=== PATIENT | male | born 1960 | race Caucasian/White ===

== ENCOUNTER 2024-10-18 08:35 | Outpatient (AMB) | payer OTHER, SELFPAY ==
[2024-10-18 08:38] VITALS: BP 118/74; PULSE 60; O2SAT 97; BMI 29.8
--- NOTE | 2024-10-18 08:38 | MHC.OFFVIS ---
Vital Signs 10/18/24 08:38 Height 5 ft 10 in Weight 207 lb 14.334 oz BMI 29.8 BP 118/74 Blood Pressure Location Lt brachial Position Sitting Pulse 60 Pulse Source Pulse Oximeter Pulse Oximetry (%) 97 Oxygen Delivery Method Room Air Intake Visit Reasons: PMR/Cm Intake Note: Patient is here to follow up on PMR. He also states his hands and fingers are not getting better. Allergies No Known Allergies Allergy (Verified 10/18/24 08:43) HPI Comments Details: He has had jaw pain on a few occasions, self-limited. History of TMJ. Dentist recommends mouth guards. Denies new ocular symptoms, headache, pain and shoulder/neck/hips/thighs. Right thumb is triggering MS 1 hour. Meloxicam helped reduce hand pain but it is still present. [facility] Family History (Updated 10/18/24 @ 08:49 by Luz Edge [facility]) Father Arthritis Mother Pancreatic cancer S/P cholecystectomy Review of Systems Const All systems reviewed & are unremarkable except as noted in HPI and below Physical Exam Vital Signs: Last Vital Signs Pulse 60 10/18/24 08:38 BP 118/74 10/18/24 08:38 Pulse Ox 97 10/18/24 08:38 Oxygen Delivery Method Room Air 10/18/24 08:38 BMI result Body Mass Index 29.8 Const Other: General: Comfortable CVS: RRR Respiratory: clear to auscultation bilaterally. Good respiratory effort Skin: No lesions seen MSK: Chronic synovial thickening left 2nd MCP palpated. No joints are tender on exam. Good handgrip. Good range of motion of upper extremity lower extremity. Assessment & Plan Assessment & Plan (1) PMR (polymyalgia rheumatica): Comment: Diagnosed with PMR 05/05/2022 based on bilateral shoulder/hip/thigh pain in his to responding to NSAIDs progress to not being able to get up out of bed, elevated CRP 1.4 mg/dL with normal ESR. He responded to prednisone but while tapering prednisone he developed jaw claudication symptoms. Right Temporal artery biopsy was negative 09/2022. Prednisone 06/04/2022 to 06/04/2024. He then developed persistent right 2nd PIP swelling, chronic polyarthralgias and stiffness in PIP found to have positive rheumatoid factor greater than 120. It is possible that he has developed early seropositive rheumatoid arthritis initially presenting as PMR mimic. His symptoms are better managed on meloxicam but he has persistent morning stiffness and signs of inflammatory arthritis with chronic synovial thickening on exam of left 2nd MCP. We discussed starting DMARD therapy to control current symptoms and prevent progression of disease. Discussed side effects, benefits and drug monitoring. After adding methotrexate, we will consider discontinued meloxicam. [facility] reviewed. Code(s): M35.3 - Polymyalgia rheumatica Category: Medical Plan: Labs for disease monitoring and baseline prior to starting high-risk medication ordered After lab results are back, we will send prescription for methotrexate 12.5 mg once weekly and folic acid 1 mg daily. He will then need labs in a month to assess for drug toxicity Return to clinic in 3 months Continue meloxicam 15 mg daily (2) Hand swelling: Code(s): M79.89 - Other specified soft tissue disorders Category: Medical Plan: See above (3) Seropositive rheumatoid arthritis: Code(s): M05.9 - Rheumatoid arthritis with rheumatoid factor, unspecified Category: Medical Plan: See above (4) Trigger thumb, right thumb: Comment: Intermittent. Discussed conservative management. Code(s): M65.311 - Trigger thumb, right thumb Category: Medical Plan: OT referral We discussed using splint at night. I am recommending OT provide patient with splint to wear at night Return to clinic in 3 months Orders: Orders Aspartate Amino Transferase 10/18/24 M35.3 - Polymyalgia rheumatica, M79.89 - Other specified soft tissue disorders C Reactive Protein 10/18/24 M35.3 - Polymyalgia rheumatica, M79.89 - Other specified soft tissue disorders Complete Blood Count Auto Diff 10/18/24 M35.3 - Polymyalgia rheumatica, M79.89 - Other specified soft tissue disorders Creatinine 10/18/24 M35.3 - Polymyalgia rheumatica, M79.89 - Other specified soft tissue disorders Cyclic Citrullinated Peptide 10/18/24 M35.3 - Polymyalgia rheumatica, M79.89 - Other specified soft tissue disorders Rheumatoid Factor 10/18/24 M35.3 - Polymyalgia rheumatica, M79.89 - Other specified soft tissue disorders OT Evaluation and Treatment 10/18/24 M65.311 - Trigger thumb, right thumb Alanine Aminotransferase 10/18/24 M35.3 - Polymyalgia rheumatica, M79.89 - Other specified soft tissue disorders Erythrocyte Sedimentation Rate 10/18/24 M35.3 - Polymyalgia rheumatica, M79.89 - Other specified soft tissue disorders Hepatitis B,C Profile 10/18/24 M35.3 - Polymyalgia rheumatica, M79.89 - Other specified soft tissue disorders T Spot TB 10/18/24 M35.3 - Polymyalgia rheumatica, M79.89 - Other specified soft tissue disorders Coding Level of Care Code Est Pt Level 5 (03292) Complex EM visit Add On G2211 Diagnoses PMR (polymyalgia rheumatica) M35.3 Hand swelling M79.89 Seropositive rheumatoid arthritis M05.9 Trigger thumb, right thumb M65.311 Time Spent (min) 60 Comment Discussing treatment with patient and reviewing records from [facility]
== END 2024-10-18 09:36 | disposition home or self-care (01) ==
PROVIDERS: PCP Nurse Practitioner; Visit Provider Internal Medicine Rheumatology
DX: M35.3 Polymyalgia rheumatica (principal); M79.89 Other specified soft tissue disorders; M05.9 Rheumatoid arthritis with rheumatoid factor, unspecified; M65.311 Trigger thumb, right thumb
CPT/HCPCS: 99215; 99417

== ENCOUNTER 2024-10-18 11:57 | Outpatient (REF) | payer OTHER, SELFPAY ==
[2024-10-18 13:35] LABS: MANUAL DIFF FLAG NO
[2024-10-18 14:03] LABS: Basophils Percent Auto 0.3 % (0-2); Eosinophils Absolute Auto 0.1 X10*3/uL (0.0-0.4); Eosinophils Percent Auto 0.9 % (0-4); Hematocrit 41.2 % (42.0-52.0); Hemoglobin 13.8 g/dl (14.0-18.0); Imm Gran Abs Auto 0.02 X10*3/uL (0.00-0.03); Imm Gran Pct Auto 0.3 % (0.0-0.4); Lymphocytes Absolute Auto 2.2 X10*3/uL (1.2-4.9); Lymphocytes Percent Auto 32.5 % (20-40); Mean Corpuscular HGB Conc 33.5 g/dl (31.0-36.0); Mean Corpuscular Hemoglobin 31.4 pg (27.0-33.0); Mean Corpuscular Volume 93.8 fL (80.0-98.0); Mean Platelet Volume 11.5 fL (9.4-12.4); Monocytes Absolute Auto 0.5 X10*3/uL (0.1-1.2); Monocytes Percent Auto 6.7 % (2-11); Neutrophils Percent Auto 59.3 % (45-73); Platelet Count 184 X10*3/uL (160-400); Red Blood Count 4.39 X10*6/uL (4.60-5.80); Red Cell Distribution Width 12.9 % (11.0-16.0); White Blood Count 6.7 X10*3/uL (4.8-10.8)
[2024-10-18 14:41] LABS: Alanine Aminotransferase 18 U/L (0-40); Aspartate Amino Transferase 28 U/L (5-37); C Reactive Protein < 0.10 mg/dL (< or = 0.50); Estimated Glomerular Filt Rate > 60
[2024-10-18 14:50] LABS: Rheumatoid Factor 157.2 IU/mL (<15.0)
[2024-10-18 15:02] LABS: Erythrocyte Sedimentation Rate 7 MM/HR (0-15)
[2024-10-19 05:13] LABS: HBS Num1 0.17 mIU/mL (0-7.99); HBc Num1 0.07 S/CO (0.00-0.79); HBsAGNum1 0.42 S/CO (0.00-0.99); Hepatitis B Core Antibody Nonreactive (Nonreactive); Hepatitis B Surface Antigen Negative (Negative); ~HepC Num1 0.11 S/CO (0.00-0.79); ~Hepatitis B Surface Antibody NONREACTIVE (Nonreactive); ~Hepatitis C Antibody Nonreactive (Nonreactive)
[2024-10-20 08:33] LABS: Cyclic Citrullinated Peptide <16 UNITS
[2024-10-21 05:03] LABS: TS Negative Control Passed; TS Panel A 0; TS Panel B 0; TS Positive Control Passed; TSpotTB Negative (Negative)
== END 2024-10-18 11:58 | disposition home or self-care (01) ==
LOC: HO.10HDL 11:57
PROVIDERS: Visit Provider Internal Medicine Rheumatology
DX: M35.3 Polymyalgia rheumatica (principal); M79.89 Other specified soft tissue disorders
CPT/HCPCS: 36415; 82565; 84450; 84460; 85025; 85652; 86140; 86200; 86431; 86481; 86704; 86706; 86803; 87340

== ENCOUNTER 2024-10-28 11:56 | Outpatient (REF) | payer OTHER, SELFPAY ==
[2024-10-28 13:07] LABS: MANUAL DIFF FLAG NO
[2024-10-28 13:31] LABS: Basophils Percent Auto 0.6 % (0-2); Eosinophils Absolute Auto 0.1 X10*3/uL (0.0-0.4); Hematocrit 45.1 % (42.0-52.0); Imm Gran Abs Auto 0.02 X10*3/uL (0.00-0.03); Imm Gran Pct Auto 0.3 % (0.0-0.4); Lymphocytes Absolute Auto 2.2 X10*3/uL (1.2-4.9); Lymphocytes Percent Auto 32.1 % (20-40); Mean Corpuscular HGB Conc 33.3 g/dl (31.0-36.0); Mean Corpuscular Hemoglobin 31.4 pg (27.0-33.0); Mean Corpuscular Volume 94.5 fL (80.0-98.0); Mean Platelet Volume 10.7 fL (9.4-12.4); Monocytes Absolute Auto 0.5 X10*3/uL (0.1-1.2); Monocytes Percent Auto 7.2 % (2-11); Neutrophils Percent Auto 58.8 % (45-73); Platelet Count 203 X10*3/uL (160-400); Red Blood Count 4.77 X10*6/uL (4.60-5.80); Red Cell Distribution Width 13.3 % (11.0-16.0); White Blood Count 6.9 X10*3/uL (4.8-10.8)
== END 2024-10-28 11:57 | disposition home or self-care (01) ==
LOC: HO.10HDL 11:56
PROVIDERS: Visit Provider Internal Medicine Rheumatology
DX: M05.9 Rheumatoid arthritis with rheumatoid factor, unspecified (principal)
CPT/HCPCS: 36415; 85025

== ENCOUNTER 2025-01-19 09:59 | Outpatient (AMB) | payer OTHER, SELFPAY ==
--- NOTE | 2025-01-19 10:02 | MHC.OFFVIS ---
Vital Signs 01/19/25 10:03 Height 5 ft 10 in Weight 206 lb 9.17 oz BMI 29.6 BP 110/80 Pulse 75 Pulse Source Pulse Oximeter Pulse Oximetry (%) 97 Oxygen Delivery Method Room Air Intake Visit Reasons: Follow UP Intake Note: Patient is here to follow up on PMR. Accompanied by: Spouse Allergies No Known Allergies Allergy (Verified 01/19/25 10:03) HPI HPI Follow UP : Details: He feels well. Minimal joint stiffness. He continues to have swelling in his fingers. He is not limited with use of his hands. He has intermittent finger locking of right 2nd finger. He was unable to start OT.. [facility] Family History (Updated 10/18/24 @ 08:49 by Luz Edge [facility]) Father Arthritis Mother Pancreatic cancer S/P cholecystectomy Review of Systems Const All systems reviewed & are unremarkable except as noted in HPI and below Physical Exam Vital Signs: Last Vital Signs Pulse 75 01/19/25 10:03 BP 110/80 01/19/25 10:03 Pulse Ox 97 01/19/25 10:03 Oxygen Delivery Method Room Air 01/19/25 10:03 BMI result Body Mass Index 29.6 Const Other: General: Comfortable CVS: RRR Respiratory: clear to auscultation bilaterally. Good respiratory effort Skin: No lesions seen MSK: Chronic synovial thickening left 2nd MCP palpated. Synovitis of right bilateral 2nd PIP knees right worse than left. Right 2nd PIP has Di's node present. No joints are tender on exam. Good handgrip. Good range of motion of upper extremity and lower extremity. Assessment & Plan Assessment & Plan (1) Seropositive rheumatoid arthritis: Comment: He continues to have synovitis on exam while on meloxicam. We discussed DMARD therapy with methotrexate. Discussed side effects, benefits, drug monitoring and patient's questions. Answered patient's questions to his satisfaction. Rheumatology history: Initially diagnosed with PMR 05/05/2022 based on bilateral shoulder/hip/thigh pain in his to responding to NSAIDs progress to not being able to get up out of bed, elevated CRP 1.4 mg/dL with normal ESR. He responded to prednisone but while tapering prednisone he developed jaw claudication symptoms. Right Temporal artery biopsy was negative 09/2022. Prednisone 06/04/2022 to 06/04/2024. He then developed persistent right 2nd PIP swelling, chronic polyarthralgias and stiffness in PIP found to have positive rheumatoid factor greater than 120. I am concerned he has seropositive rheumatoid arthritis with atypical presentation presenting as PMR mimic. Code(s): M05.9 - Rheumatoid arthritis with rheumatoid factor, unspecified Category: Medical Plan: Labs for disease monitoring and baseline prior to starting high-risk medication ordered After lab results are back, we will send prescription for methotrexate 12.5 mg once weekly and folic acid 1 mg daily. He will then need labs in a month to assess for drug toxicity He will have immunizations: Flu shot, COVID-19 booster, pneumonia vaccine prior to starting methotrexate. He is up-to-date with Shingrix. We discussed importance of maintaining a healthy weight with regular exercise He will be following up with PCP for anxiety management. No contraindication to being on antianxiety medication/mood stabilizer with methotrexate. Return to clinic in 3 months Continue meloxicam 15 mg daily. I plan to discontinue meloxicam when synovitis resolves (2) PMR (polymyalgia rheumatica): Comment: Code(s): M35.3 - Polymyalgia rheumatica Category: Medical Plan: See above (3) Trigger thumb, right thumb: Comment: Intermittent. Discussed conservative management. Code(s): M65.311 - Trigger thumb, right thumb Category: Medical Plan: OT referral placed again. We discussed using splint at night. I am recommending OT provide patient with splint to wear at night Return to clinic in 3 months Orders: Orders Aspartate Amino Transferase Today Z79.60 - group home (current) use of unspecified immunomodulators and immunosuppressants C Reactive Protein Today Z79.899 - Other terminal operations supervisor (current) drug therapy Erythrocyte Sedimentation Rate Today Z79.899 - Other terminal operations supervisor (current) drug therapy Alanine Aminotransferase Today Z79.60 - terminal gauger supervisor (current) use of unspecified immunomodulators and immunosuppressants Complete Blood Count Auto Diff Today Z79.60 - terminal gauger supervisor (current) use of unspecified immunomodulators and immunosuppressants Creatinine Today Z79.60 - group home (current) use of unspecified immunomodulators and immunosuppressants Coding Level of Care Code Est Pt Level 4 (24171) Complex EM visit Add On G2211 Diagnoses Seropositive rheumatoid arthritis M05.9 PMR (polymyalgia rheumatica) M35.3 Trigger thumb, right thumb M65.311
[2025-01-19 10:03] VITALS: BP 110/80; PULSE 75; O2SAT 97; BMI 29.6
== END 2025-01-19 11:00 | disposition home or self-care (01) ==
PROVIDERS: PCP Nurse Practitioner; Visit Provider Internal Medicine Rheumatology
DX: M05.9 Rheumatoid arthritis with rheumatoid factor, unspecified (principal); M35.3 Polymyalgia rheumatica; M65.311 Trigger thumb, right thumb
CPT/HCPCS: 99214

== ENCOUNTER 2025-01-19 09:59 | Outpatient (REF) | payer OTHER, SELFPAY ==
[2025-01-19 17:53] LABS: MANUAL DIFF FLAG NO
[2025-01-19 18:01] LABS: Basophils Percent Auto 0.4 % (0-2); Eosinophils Absolute Auto 0.1 X10*3/uL (0.0-0.4); Eosinophils Percent Auto 1.3 % (0-4); Hematocrit 51.3 % (42.0-52.0); Hemoglobin 16.8 g/dl (14.0-18.0); Imm Gran Abs Auto 0.02 X10*3/uL (0.00-0.03); Imm Gran Pct Auto 0.3 % (0.0-0.4); Lymphocytes Absolute Auto 2.4 X10*3/uL (1.2-4.9); Lymphocytes Percent Auto 34.9 % (20-40); Mean Corpuscular HGB Conc 32.7 g/dl (31.0-36.0); Mean Corpuscular Hemoglobin 31.5 pg (27.0-33.0); Mean Corpuscular Volume 96.1 fL (80.0-98.0); Mean Platelet Volume 11.4 fL (9.4-12.4); Monocytes Absolute Auto 0.6 X10*3/uL (0.1-1.2); Monocytes Percent Auto 8.4 % (2-11); Neutrophils Absolute Auto 3.8 x10*3/uL (2.0-8.3); Neutrophils Percent Auto 54.7 % (45-73); Platelet Count 207 X10*3/uL (160-400); Red Blood Count 5.34 X10*6/uL (4.60-5.80); Red Cell Distribution Width 13.3 % (11.0-16.0); White Blood Count 6.9 X10*3/uL (4.8-10.8)
[2025-01-19 18:18] LABS: Alanine Aminotransferase 19 U/L (0-40); Aspartate Amino Transferase 40 U/L (5-37); C Reactive Protein < 0.10 mg/dL (< or = 0.50); Estimated Glomerular Filt Rate > 60
== END 2025-01-19 10:00 | disposition home or self-care (01) ==
LOC: HO.HKASLDS 09:59
PROVIDERS: PCP Nurse Practitioner; Visit Provider Internal Medicine Rheumatology
DX: M05.9 Rheumatoid arthritis with rheumatoid factor, unspecified (principal); M35.3 Polymyalgia rheumatica; M65.311 Trigger thumb, right thumb; Z79.899 Other long term (current) drug therapy; Z79.60 Long term (current) use of unspecified immunomodulators and immunosuppressants
CPT/HCPCS: 36415; 82565; 84450; 84460; 85025; 86140

== ENCOUNTER 2025-01-24 12:39 | Outpatient (REF) | payer OTHER, SELFPAY ==
[2025-01-24 19:49] LABS: Alanine Aminotransferase 23 U/L (0-40); Albumin Level 4.2 g/dL (3.5-5.0); Alkaline Phosphatase 54 U/L (39-117); Aspartate Amino Transferase 30 U/L (5-37); Bilirubin Direct 0.3 mg/dL (0.0-0.5); Bilirubin Total 0.4 mg/dL (0.0-1.0); Total Protein 7.4 g/dL (6.5-8.0)
[2025-01-24 20:11] LABS: Erythrocyte Sedimentation Rate 5 MM/HR (0-15)
== END 2025-01-24 12:40 | disposition home or self-care (01) ==
LOC: HO.HKASLDS 12:39
PROVIDERS: Visit Provider Internal Medicine Rheumatology
DX: Z79.899 Other long term (current) drug therapy (principal); R74.01 Elevation of levels of liver transaminase levels
CPT/HCPCS: 36415; 80076; 85652

== ENCOUNTER 2025-04-25 08:54 | Outpatient (AMB) | payer OTHER, SELFPAY ==
[2025-04-25 08:56] VITALS: BP 110/80; PULSE 61; O2SAT 97; BMI 30.1
--- NOTE | 2025-04-25 08:56 | MHC.OFFVIS ---
Vital Signs 04/25/25 08:56 Height 5 ft 10 in Weight 210 lb BMI 30.1 BP 110/80 Blood Pressure Location Lt brachial Position Sitting Pulse 61 Pulse Source Pulse Oximeter Pulse Oximetry (%) 97 Intake Visit Reasons: 3 Months Intake Note: Patient is here to follow up on PMR. Allergies No Known Allergies Allergy (Verified 04/25/25 08:56) HPI HPI 3 Months: Details: Neck pain and stiffness in the morning lasting 20min. Onset a few months ago. Intermittent. Swelling in hands improved. Tolerated methotrexate. He is avoiding alcohol. Trigger finger has resolved. No recent infections. He is experiencing pain in his right upper arm 3 to 4 times a week at the end of his walks. Lasts about 20 minutes. He may use diclofenac gel or Tylenol, which relieves the pain. [facility] Family History Father Arthritis Mother Pancreatic cancer S/P cholecystectomy Physical Exam Vital Signs: Last Vital Signs Pulse 61 04/25/25 08:56 BP 110/80 04/25/25 08:56 Pulse Ox 97 04/25/25 08:56 BMI result Body Mass Index 30.1 Const Other: General: Comfortable CVS: RRR Respiratory: clear to auscultation bilaterally. Good respiratory effort Skin: No lesions seen MSK: Synovitis of right 2nd PIP without tenderness. Right 2nd PIP has Di's node present. No joints are tender on exam. Good handgrip. Good range of motion of upper extremity and lower extremity. No triggering observed. Tender to palpate right biceps muscle and long head tendon attachment. Negative yergason test. Assessment & Plan Assessment & Plan (1) Seropositive rheumatoid arthritis: Comment: Improved synovitis on methotrexate. He is tolerating methotrexate. Rheumatology history: Initially diagnosed with PMR 05/05/2022 based on bilateral shoulder/hip/thigh pain in his to responding to NSAIDs progress to not being able to get up out of bed, elevated CRP 1.4 mg/dL with normal ESR. He responded to prednisone but while tapering prednisone he developed jaw claudication symptoms. Right Temporal artery biopsy was negative 09/2022. Prednisone 06/04/2022 to 06/04/2024. He then developed persistent right 2nd PIP swelling, chronic polyarthralgias and stiffness in PIP found to have positive rheumatoid factor greater than 120. I am concerned he has seropositive rheumatoid arthritis with atypical presentation presenting as PMR mimic. Code(s): M05.9 - Rheumatoid arthritis with rheumatoid factor, unspecified Category: Medical Plan: Increase methotrexate 15 mg once weekly Continue folic acid 1 mg daily. Labs for disease and drug monitoring ordered Return to clinic in 3 months Continue meloxicam 15 mg daily. He will try to reduce frequency of meloxicam use and eventually discontinue if joint pain is controlled (2) PMR (polymyalgia rheumatica): Comment: Code(s): M35.3 - Polymyalgia rheumatica Category: Medical Plan: See above (3) Trigger thumb, right thumb: Comment: Resolved Code(s): M65.311 - Trigger thumb, right thumb Category: Medical Plan: Monitor clinic (4) Strain of right biceps: Comment: Clinical diagnosis. Discussed conservative management. Code(s): S46.211A - Strain of muscle, fascia and tendon of other parts of biceps, right arm, initial encounter Category: Medical Qualifiers: Encounter type: initial encounter Qualified Code(s): S46.211A - Strain of muscle, fascia and tendon of other parts of biceps, right arm, initial encounter Plan: PT ordered I have inflammation markers are elevated, it may indicated mild PMR flare. I will then consider prednisone course. Meloxicam we will need to be held while on prednisone (5) Other bed bug exterminator (current) drug therapy: Code(s): Z79.899 - Other prison (current) drug therapy Category: Medical Plan: See above Orders: Orders Erythrocyte Sedimentation Rate Today M05.9 - Rheumatoid arthritis with rheumatoid factor, unspecified, M35.3 - Polymyalgia rheumatica, Z79.899 - Other prison (current) drug therapy Complete Blood Count Auto Diff Today M05.9 - Rheumatoid arthritis with rheumatoid factor, unspecified, M35.3 - Polymyalgia rheumatica, Z79.60 - shelter (current) use of unspecified immunomodulators and immunosuppressants, Z79.899 - Other prison (current) drug therapy PT Evaluation and Treatment Today S46.211A - Strain of muscle, fascia and tendon of other parts of biceps, right arm, initial encounter C Reactive Protein Today M05.9 - Rheumatoid arthritis with rheumatoid factor, unspecified, M35.3 - Polymyalgia rheumatica, Z79.899 - Other bed bug exterminator (current) drug therapy Alanine Aminotransferase Today M05.9 - Rheumatoid arthritis with rheumatoid factor, unspecified, M35.3 - Polymyalgia rheumatica, Z79.60 - shelter (current) use of unspecified immunomodulators and immunosuppressants, Z79.899 - Other prison (current) drug therapy Aspartate Amino Transferase Today M05.9 - Rheumatoid arthritis with rheumatoid factor, unspecified, M35.3 - Polymyalgia rheumatica, Z79.60 - long term care administrator (current) use of unspecified immunomodulators and immunosuppressants, Z79.899 - Other bed bug exterminator (current) drug therapy Creatinine Today M05.9 - Rheumatoid arthritis with rheumatoid factor, unspecified, M35.3 - Polymyalgia rheumatica, Z79.60 - shelter (current) use of unspecified immunomodulators and immunosuppressants, Z79.899 - Other prison (current) drug therapy Medications: Changed From methotrexate sodium 12.5 mg (5 x 2.5 mg) PO QWEEK 12 weeks 60 tabs 0RF To methotrexate sodium Increase dose 15 mg (6 x 2.5 mg) PO QWEEK 72 tabs 0RF 12 weeks Coding Level of Care Code Est Pt Level 4 (27229) Complex EM visit Add On G2211 Diagnoses Seropositive rheumatoid arthritis M05.9 PMR (polymyalgia rheumatica) M35.3 Trigger thumb, right thumb M65.311 Strain of right biceps, initial encounter S46.211A Encounter type: initial encounter Other prison (current) drug therapy Z79.899
== END 2025-04-25 09:36 | disposition home or self-care (01) ==
LOC: HO.RHES 08:54
PROVIDERS: PCP Nurse Practitioner; Visit Provider Internal Medicine Rheumatology
DX: M05.9 Rheumatoid arthritis with rheumatoid factor, unspecified (principal); M35.3 Polymyalgia rheumatica; M65.311 Trigger thumb, right thumb; S46.211A Strain of muscle, fascia and tendon of other parts of biceps, right arm, initial encounter; Z79.899 Other long term (current) drug therapy
CPT/HCPCS: 99214

== ENCOUNTER → 2025-04-25 08:54 | Outpatient (BNVA) | payer OTHER, SELFPAY | PROVIDERS: PCP Nurse Practitioner; Visit Provider Internal Medicine Rheumatology ==

== ENCOUNTER 2025-04-25 09:55 | Outpatient (REF) | payer OTHER, SELFPAY ==
[2025-04-25 17:57] LABS: MANUAL DIFF FLAG NO
[2025-04-25 18:18] LABS: Basophils Percent Auto 0.5 % (0-2); Eosinophils Absolute Auto 0.1 X10*3/uL (0.0-0.4); Eosinophils Percent Auto 0.8 % (0-4); Hematocrit 44.5 % (42.0-52.0); Hemoglobin 14.5 g/dl (14.0-18.0); Imm Gran Abs Auto 0.01 X10*3/uL (0.00-0.03); Imm Gran Pct Auto 0.2 % (0.0-0.4); Lymphocytes Absolute Auto 1.6 X10*3/uL (1.2-4.9); Lymphocytes Percent Auto 24.1 % (20-40); Mean Corpuscular HGB Conc 32.6 g/dl (31.0-36.0); Mean Corpuscular Hemoglobin 31.5 pg (27.0-33.0); Mean Corpuscular Volume 96.7 fL (80.0-98.0); Mean Platelet Volume 11.1 fL (9.4-12.4); Monocytes Absolute Auto 0.5 X10*3/uL (0.1-1.2); Monocytes Percent Auto 7.2 % (2-11); Neutrophils Absolute Auto 4.3 x10*3/uL (2.0-8.3); Neutrophils Percent Auto 67.2 % (45-73); Platelet Count 190 X10*3/uL (160-400); Red Cell Distribution Width 14.1 % (11.0-16.0); White Blood Count 6.4 X10*3/uL (4.8-10.8)
[2025-04-25 18:39] LABS: Alanine Aminotransferase 21 U/L (0-40); Aspartate Amino Transferase 30 U/L (5-37); C Reactive Protein < 0.10 mg/dL (< or = 0.50); Estimated Glomerular Filt Rate > 60
[2025-04-25 19:31] LABS: Erythrocyte Sedimentation Rate 7 MM/HR (0-15)
== END 2025-04-25 09:56 | disposition home or self-care (01) ==
LOC: HO.HKASLDS 09:55
PROVIDERS: Visit Provider Internal Medicine Rheumatology
DX: M05.9 Rheumatoid arthritis with rheumatoid factor, unspecified (principal); M35.3 Polymyalgia rheumatica; Z79.899 Other long term (current) drug therapy; Z79.60 Long term (current) use of unspecified immunomodulators and immunosuppressants
CPT/HCPCS: 36415; 82565; 84450; 84460; 85025; 85652; 86140

== ENCOUNTER 2025-06-21 09:58 | Outpatient (RCR) | payer OTHER, SELFPAY ==
--- NOTE | 2025-05-11 10:46 | MHC.PT.EP ---
[facility] [place] Office [place] Office [place] Office [address] Eneida William [address] [phone] F: [phone] F: [phone] F: [phone] F: [phone] Physical Therapy Plan of Care Date of Evaluation: 05/10/25 Date of Surgery: Diagnosis: Strain of muscle, fascia and tendon of other parts of biceps, right arm, initial Assessment: Pt is a pleasant and motivated 64yo M who presents to PT with R upper arm pain. He presents to PT with current impairments in decreased cervical ROM, decreased R shoulder ROM, decreased strength, soft tissue restrictions, and impaired posture. He is limited functionally by prolonged walking, lifting, driving, cervical rotation, and looking up. He is an excellent candidate for skilled PT in order to address current impairments to facilitate return to PLOF. He is recommended to be seen 2x/week for 4 weeks and will be reassessed at that time Frequency and Duration: The patient will be seen 2x/week for 4 weeks Short Term Goals: Pt will be I with HEP to promote self management of symptoms Pt will improve R shoulder flexion by at least 10 degrees Penitentiary Goals: Pt will achieve full ROM and strength all planes of right shoulder to assist with lifting and reaching Pt will ambulate 2-3 miles with his dog with minimal to no pain in his R UE Treatment Plan: Modalities to reduce pain, spasms and effusion. Manual therapy to restore motion and function. Therapeutic exercise to improve strength and flexibility. Neuromuscular re-education for posture and balance. Therapeutic activities to return to functional activities of daily living. Electronically signed by: Fiona Gonzales, PT, DPT Please sign and return to therapist. Thank you for your referral.
--- NOTE | 2025-06-21 13:05 | MHC.PT.DC ---
[facility] [place] Office [place] Office [place] Office [address] Eneida William [address] [phone] F: [phone] F: [phone] F: [phone] F: [phone] Physical Therapy Discharge Report Diagnosis: Strain of muscle, fascia and tendon of other parts of biceps, right arm, initial Date of Surgery: Date of Evaluation: 05/10/25 Date of Discharge: 06/21/25 Treatments to Date: 9 Cancellations to Date: No Shows to Date: Discharge Status: Improved Function Independent with HEP Discharge Summary: Pt has made good progress since SOC. He has improved R shoulder ROM and strength. He has had a decrease in pain and an increase in function. He has returned to walking with minimal discomfort. He is independent with HEP. He is being D/C to HEP at this time. He reports he has printed copy of HEP and therabands. He reports no further questions or concerns for PT at this time Electronically signed by: Fiona Gonzales, PT, DPT Please sign and return to therapist. Thank you for your referral.
== END 2025-06-21 13:06 | disposition home or self-care (01) ==
LOC: HO.PTS 09:58
PROVIDERS: PCP Nurse Practitioner; Visit Provider Internal Medicine Rheumatology
DX: S46.211D Strain of muscle, fascia and tendon of other parts of biceps, right arm, subsequent encounter (principal)
CPT/HCPCS: 97110; 97140; 97162; 97530

== ENCOUNTER 2025-07-26 09:04 | Outpatient (REF) | payer OTHER, SELFPAY ==
[2025-07-26 13:33] LABS: MANUAL DIFF FLAG NO
[2025-07-26 13:56] LABS: Hematocrit 42.2 % (42.0-52.0); Hemoglobin 14.5 g/dl (14.0-18.0); Imm Gran Abs Auto 0.03 X10*3/uL (0.00-0.03); Imm Gran Pct Auto 0.5 % (0.0-0.4); Lymphocytes Absolute Auto 1.9 X10*3/uL (1.2-4.9); Mean Corpuscular HGB Conc 34.4 g/dl (31.0-36.0); Mean Corpuscular Hemoglobin 32.4 pg (27.0-33.0); Mean Corpuscular Volume 94.2 fL (80.0-98.0); NRBC Abs Auto 0.000 X10*3/uL (0.0-0.012); NRBC Pct Auto 0.0 /100WBC (0.0-0.2); Platelet Count 202 X10*3/uL (160-400); Red Blood Count 4.48 X10*6/uL (4.60-5.80); White Blood Count 6.3 X10*3/uL (4.8-10.8)
[2025-07-26 14:17] LABS: Alanine Aminotransferase 19 U/L (0-40); Aspartate Amino Transferase 28 U/L (5-37); Estimated Glomerular Filt Rate > 60
== END 2025-07-26 09:05 | disposition home or self-care (01) ==
LOC: HO.HKASLDS 09:04
PROVIDERS: PCP Nurse Practitioner; Visit Provider Internal Medicine Rheumatology
DX: S46.211A Strain of muscle, fascia and tendon of other parts of biceps, right arm, initial encounter (principal); M05.9 Rheumatoid arthritis with rheumatoid factor, unspecified; M35.3 Polymyalgia rheumatica; Z79.899 Other long term (current) drug therapy; Z79.60 Long term (current) use of unspecified immunomodulators and immunosuppressants; X58.XXXA Exposure to other specified factors, initial encounter
CPT/HCPCS: 20600; 36415; 82565; 84450; 84460; 85025; 85652; 86140; J2003; J3301

== ENCOUNTER 2025-07-26 09:04 | Outpatient (AMB) | payer OTHER, SELFPAY ==
[2025-07-26 09:06] VITALS: BP 120/60; PULSE 61; O2SAT 98; BMI 30.1
--- NOTE | 2025-07-26 09:06 | A.OFFVIS_ITS ---
Vital Signs 07/26/25 09:06 Height 5 ft 10 in Weight 210 lb 1.608 oz BMI 30.1 BP 120/60 Blood Pressure Location Rt brachial Position Sitting Pulse 61 Pulse Source Pulse Oximeter Pulse Oximetry (%) 98 Oxygen Delivery Method Room Air Intake Visit Reasons: 3 months Intake Note: Patient is here to follow up on PMR. Accompanied by: Spouse Allergies No Known Allergies Allergy (Verified 07/26/25 09:10) Medication List - Last Reconciled 07/26/25 by Jose Bourne MD atorvastatin 20 mg PO DAILY folic acid 1 mg PO DAILY ibuprofen (Motrin IB) 200 mg PO Q6H PRN meloxicam 15 mg PO DAILY methotrexate sodium 15 mg (6 x 2.5 mg) PO QWEEK 12 weeks multivitamin 1 tab PO DAILY HPI HPI 3 months: Details: MS minutes. Tolerating MTX increase dose. PT helped. [place]oulder pain is not as frequent and lasting long. He not compliant with home exercise program. [facility] Family History Father Arthritis Mother Pancreatic cancer S/P cholecystectomy Physical Exam Vital Signs: Last Vital Signs Pulse 61 07/26/25 09:06 BP 120/60 07/26/25 09:06 Pulse Ox 98 07/26/25 09:06 Oxygen Delivery Method Room Air 07/26/25 09:06 BMI result Body Mass Index 30.1 Const Other: General: Comfortable CVS: RRR Respiratory: clear to auscultation bilaterally. Good respiratory effort Skin: No lesions seen MSK: Synovitis of right 2nd PIP without tenderness. Right 2nd PIP has Di's node present. No joints are tender on exam. Good handgrip. Normal range of motion of upper extremity and lower extremity. No triggering observed. Office Procedures AMB Joint Injection/Aspiration Joint Injection/Aspiration Details: Right 2nd PIP Prep: site was prepped using aseptic technique Injected: 10 mg of, Kenalog, with 0.25 mL of and 1% plain lidocaine Procedure: Informed verbal consent was obtained. The patient tolerated the procedure well. Postprocedure protocol was discussed with patient. Procedure: The patient tolerated the procedure well Coding - Small Joint Procedure code (CPT) selection complete Office Meds lidocaine (PF) 10 mg/mL (1 %) injection solution Performing Provider: Jose Bourne MD Performing Location: [facility] Administered by: Sepideh Jackman RN on 07/26/25 09:39 Dose Route Admin Location Dispensed Lot Number Expiration Date ND Funeral Director/Embalmer 0.25 mL Infiltration 2 mL [id number] 04/15/27 11583-453-55 ELSA DUQUE Total Dispensed Waste 2 mL 87.5 % Kenalog 40 mg/mL suspension for injection Performing Provider: Jose Bourne MD Performing Location: [facility] [place] [facility] Administered by: Sepideh Jackman RN on 07/26/25 09:39 Dose Route Admin Location Dispensed Lot Number Expiration Date ND Funeral Director/Embalmer 10 mg intra-articular 1 mL [id number] 03/15/26 [address]-4 L RISHABH BRIGGS PHAFrandy Total Dispensed Waste 1 mL 75 % Assessment & Plan Assessment & Plan (1) Seropositive rheumatoid arthritis: Comment: He has persistent synovitis right 2nd PIP. He is tolerating methotrexate. We discussed next steps in treatment with targeted approach with intra-articular cortisone injection. Rheumatology history: Initially diagnosed with PMR 05/05/2022 based on bilateral shoulder/hip/thigh pain in his to responding to NSAIDs progress to not being able to get up out of bed, elevated CRP 1.4 mg/dL with normal ESR. He responded to prednisone but while tapering prednisone he developed jaw claudication symptoms. Right Temporal artery biopsy was negative 09/2022. Prednisone 06/04/2022 to 06/04/2024. He then developed persistent right 2nd PIP swelling, chronic polyarthralgias and stiffness in PIP found to have positive rheumatoid factor greater than 120. I am concerned he has seropositive rheumatoid arthritis with atypical presentation presenting as PMR mimic. Code(s): M05.9 - Rheumatoid arthritis with rheumatoid factor, unspecified Category: Medical Plan: Patient received right 2nd PIP intra-articular cortisone injection Continue methotrexate 15 mg once weekly Continue folic acid 1 mg daily. Labs for disease and drug monitoring ordered Continue meloxicam 15 mg daily. He will try to reduce frequency of meloxicam use and eventually discontinue if joint pain is controlled Return to clinic in 3 months (2) PMR (polymyalgia rheumatica): Comment: Code(s): M35.3 - Polymyalgia rheumatica Category: Medical Plan: See above (3) Strain of right biceps: Comment: Improved with PT. Intermittent. Clinical diagnosis. Discussed conservative management. Code(s): S46.211A - Strain of muscle, fascia and tendon of other parts of biceps, right arm, initial encounter Category: Medical Qualifiers: Encounter type: initial encounter Qualified Code(s): S46.211A - Strain of muscle, fascia and tendon of other parts of biceps, right arm, initial encounter Plan: Resume home exercise program (4) Other jail (current) drug therapy: Code(s): Z79.899 - Other termite control service representative (current) drug therapy Category: Medical Plan: See above Orders: Orders Aspartate Amino Transferase Today Z79.899 - Other termite control service representative (current) drug therapy AMB Joint Injection/Aspiration Today M05.9 - Rheumatoid arthritis with rheumatoid factor, unspecified, M35.3 - Polymyalgia rheumatica Complete Blood Count Auto Diff Today Z79.899 - Other termite control service representative (current) drug therapy Alanine Aminotransferase Today Z79.899 - Other termite control service representative (current) drug therapy Creatinine Today Z79.899 - Other jail (current) drug therapy C Reactive Protein Today Z79.899 - Other termite control service representative (current) drug therapy Erythrocyte Sedimentation Rate Today Z79.899 - Other termite control service representative (current) drug therapy Medications: Changed From methotrexate sodium Increase dose 15 mg (6 x 2.5 mg) PO QWEEK 12 weeks 72 tabs 0RF To methotrexate sodium 15 mg (6 x 2.5 mg) PO QWEEK 72 tabs 0RF 12 weeks Coding Level of Care Code Est Pt Level 4 (67430) Complex EM visit Add On G2211 Diagnoses Seropositive rheumatoid arthritis M05.9 PMR (polymyalgia rheumatica) M35.3 Strain of right biceps, initial encounter S46.A Encounter type: initial encounter Other jail (current) drug therapy Z79.899 CPT Codes Coding - - Small joint: - Small Joint ([id number])
== END 2025-07-26 09:36 | disposition home or self-care (01) ==
LOC: HO.RHES 09:05
PROVIDERS: PCP Nurse Practitioner; Visit Provider Internal Medicine Rheumatology
DX: M05.79 Rheumatoid arthritis with rheumatoid factor of multiple sites without organ or systems involvement (principal); M35.3 Polymyalgia rheumatica; M65.841 Other synovitis and tenosynovitis, right hand; S46.211A Strain of muscle, fascia and tendon of other parts of biceps, right arm, initial encounter; Z79.899 Other long term (current) drug therapy
CPT/HCPCS: 20600; 99214

== ENCOUNTER 2025-10-23 10:20 | Outpatient (REF) | payer OTHER, SELFPAY ==
[2025-10-23 14:22] LABS: Hematocrit 46.5 % (42.0-52.0); Hemoglobin 15.6 g/dl (14.0-18.0); Imm Gran Abs Auto 0.01 X10*3/uL (0.00-0.03); Imm Gran Pct Auto 0.1 % (0.0-0.4); Lymphocytes Absolute Auto 2.5 X10*3/uL (1.2-4.9); MANUAL DIFF FLAG NO; Mean Corpuscular HGB Conc 33.5 g/dl (31.0-36.0); Mean Corpuscular Hemoglobin 31.8 pg (27.0-33.0); Mean Corpuscular Volume 94.9 fL (80.0-98.0); NRBC Abs Auto 0.000 X10*3/uL (0.0-0.012); NRBC Pct Auto 0.0 /100WBC (0.0-0.2); Platelet Count 237 X10*3/uL (160-400); Red Blood Count 4.90 X10*6/uL (4.60-5.80); White Blood Count 7.3 X10*3/uL (4.8-10.8)
[2025-10-23 14:55] LABS: Alanine Aminotransferase 30 U/L (0-40); Aspartate Amino Transferase 31 U/L (5-37); Estimated Glomerular Filt Rate > 60
[2025-10-23 15:02] LABS: Erythrocyte Sedimentation Rate 8 MM/HR (0-15)
== END 2025-10-23 10:21 | disposition home or self-care (01) ==
LOC: HO.HKASLDS 10:20
PROVIDERS: PCP Nurse Practitioner; Visit Provider Internal Medicine Rheumatology
DX: Z79.899 Other long term (current) drug therapy (principal)
CPT/HCPCS: 36415; 82565; 84450; 84460; 85025; 85652; 86140

== ENCOUNTER 2025-10-25 10:35 | Outpatient (AMB) | payer OTHER, SELFPAY ==
--- NOTE | 2025-10-25 10:36 | A.OFFVIS_ITS ---
Vital Signs 10/25/25 10:37 Height 5 ft 10 in Weight 215 lb 13.321 oz BMI 31.0 BP 126/86 Blood Pressure Location Rt brachial Position Sitting Pulse 73 Pulse Source Pulse Oximeter Pulse Oximetry (%) 97 Oxygen Delivery Method Room Air Intake Visit Reasons: 3months Intake Note: Patient is here to follow up on PMR. Accompanied by: Spouse Allergies No Known Allergies Allergy (Verified 10/25/25 10:36) HPI HPI 3months: Details: He denies hand pain or morning stiffness. No recent infections. He had orthopedic evaluation for left knee pain and was diagnosed with ITP band syndrome and patellofemoral syndrome. He was prescribed a brace and we will be starting PT. No imaging was done of his knees. [facility] Medical History (Updated 10/25/25 @ 13:03 by Jose Bourne MD) Patella-femoral syndrome Iliotibial band syndrome Family History Father Arthritis Mother Pancreatic cancer S/P cholecystectomy Physical Exam Vital Signs: Last Vital Signs Pulse 73 10/25/25 10:37 BP 126/86 10/25/25 10:37 Pulse Ox 97 10/25/25 10:37 Oxygen Delivery Method Room Air 10/25/25 10:37 BMI result Body Mass Index 31.0 Const Other: General: Comfortable CVS: RRR Respiratory: clear to auscultation bilaterally. Good respiratory effort Skin: No lesions seen MSK: mild synovitis of right 2nd PIP with tenderness. Di's node present. Good handgrip. He has mild synovitis of left knee. Normal range of motion of upper extremity and lower extremity. No triggering observed. Assessment & Plan Assessment & Plan (1) Seropositive rheumatoid arthritis: Comment: Synovitis right 2nd PIP improved with intra-articular cortisone injection. He has residual synovitis on monotherapy with methotrexate. Creatinine level has increased with most recent lab testing. Rheumatology history: Initially diagnosed with PMR 05/05/2022 based on bilateral shoulder/hip/thigh pain in his to responding to NSAIDs progress to not being able to get up out of bed, elevated CRP 1.4 mg/dL with normal ESR. He responded to prednisone but while tapering prednisone he developed jaw claudication symptoms. Right Temporal artery biopsy was negative 09/2022. Prednisone 06/04/2022 to 06/04/2024. He then developed persistent right 2nd PIP swelling, chronic polyarthralgias and stiffness in PIP found to have positive rheumatoid factor greater than 120. I am concerned he has seropositive rheumatoid arthritis with atypical presentation presenting as PMR mimic. Code(s): M05.9 - Rheumatoid arthritis with rheumatoid factor, unspecified Category: Medical Plan: Increase methotrexate to 17.5 mg once weekly Continue folic acid 1 mg daily. Labs for disease and drug monitoring up-to-date Continue meloxicam 15 mg daily Repeat creatinine in 2 weeks. If creatinine continues to be elevated, we will discontinue meloxicam Return to clinic in 3 months (2) PMR (polymyalgia rheumatica): Comment: Code(s): M35.3 - Polymyalgia rheumatica Category: Medical Plan: See above (3) Other manager intermediate (current) drug therapy: Code(s): Z79.899 - Other manager intermediate (current) drug therapy Category: Medical Plan: See above Medications: Changed From methotrexate sodium 15 mg (6 x 2.5 mg) PO QWEEK 12 weeks 72 tabs 0RF To methotrexate sodium 17.5 mg (7 x 2.5 mg) PO QWEEK 84 tabs 0RF 12 weeks Coding Level of Care Code Est Pt Level 4 (62277) Add On Problem Visit Only Diagnoses Seropositive rheumatoid arthritis M05.9 PMR (polymyalgia rheumatica) M35.3 Other residential (current) drug therapy Z79.899
[2025-10-25 10:37] VITALS: BP 126/86; PULSE 73; O2SAT 97; BMI 31.0
== END 2025-10-25 11:08 | disposition home or self-care (01) ==
LOC: HO.RHES 10:36
PROVIDERS: PCP Nurse Practitioner; Visit Provider Internal Medicine Rheumatology
DX: M05.9 Rheumatoid arthritis with rheumatoid factor, unspecified (principal); M35.3 Polymyalgia rheumatica; Z79.899 Other long term (current) drug therapy
CPT/HCPCS: 99214

== ENCOUNTER 2025-11-13 09:22 | Outpatient (REF) | payer OTHER, SELFPAY ==
[2025-11-13 14:49] LABS: Estimated Glomerular Filt Rate > 60
== END 2025-11-13 09:23 | disposition home or self-care (01) ==
LOC: HO.HKASLDS 09:22
PROVIDERS: PCP Nurse Practitioner; Visit Provider Internal Medicine Rheumatology
DX: Z79.899 Other long term (current) drug therapy (principal)
CPT/HCPCS: 36415; 82565